=== PATIENT | female | born 1990 | race Caucasian/White ===

== ENCOUNTER → 2016-02-13 | Outpatient (CLI) | payer OTHER ==
[2016-02-14 14:13] LABS: Gliadin AB IgA, Deaminated 5 UNITS (<20); Gliadin AB IgG, Deaminated 3 UNITS (<20)
== END | disposition home or self-care (01) ==
LOC: LABWHC1 11:47
PROVIDERS: ATTEND Family Medicine
DX: R63.4 Abnormal weight loss (principal)
CPT/HCPCS: 36415; 83516; 86677

== ENCOUNTER 2018-07-09 10:46 | Inpatient (IN) | payer OTHER ==
[2018-07-09 13:40] VITALS: BMI 20.9
[2018-07-09 15:14] LABS: Basophils % (A) 1 %; Eosinophils # (A) 0.4 k/uL (0-0.7); Eosinophils % (A) 5 %; HCT 37.6 % (34.0-46.0); HGB 12.2 gm/dL (11.4-16.0); Lymphocytes # (A) 1.7 k/uL (1.0-4.8); Lymphocytes % (A) 20 %; MCH 28.4 pg (25.0-35.0); MCHC 32.5 g/dL (31.0-37.0); MCV 87.4 fL (80.0-100.0); Mean Platelet Volume 6.9; Monocytes # (A) 0.4 k/uL (0-1.0); Monocytes % (A) 4 %; Neutrophils # (A) 5.9 k/uL (1.3-7.7); Neutrophils % (A) 69 %; Platelet Count 294 k/uL (150-450); RBC 4.31 m/uL (3.80-5.40); RDW 13.4 % (11.5-15.5); WBC 8.5 k/uL (3.8-10.6)
[2018-07-09 15:20] LABS: ALT 18 U/L (9-52); AST 26 U/L (14-36); Alkaline Phosphatase 57 U/L (38-126); Anion Gap 5 mmol/L; Blood Urea Nitrogen 8 mg/dL (7-17); Calcium 9.2 mg/dL (8.4-10.2); Carbon Dioxide 27 mmol/L (22-30); Chloride 108 mmol/L (98-107); Glucose 80 mg/dL (74-99); Potassium 4.5 mmol/L (3.5-5.1); Sodium 140 mmol/L (137-145); Total Bilirubin 1.1 mg/dL (0.2-1.3); Total Protein 6.6 g/dL (6.3-8.2)
[2018-07-09] MEDS: ONDANSETRON 4 MG/2 ML VIAL IVP PRN ×2 (15:34→21:54)
[2018-07-09] MEDS: ACETAMINOPHEN IV (For NPO) 1,000 MG in EMPTY BAG 1 BAG IVPB SCH ×2 (15:47→21:54)
[2018-07-09] MEDS: HYDROmorphone 0.5 MG/0.5 ML SYRINGE IVP PRN ×3 (15:49→23:32)
[2018-07-09] MEDS: CHOLECALCIFEROL 1,000 UNIT TAB PO SCH (15:51)
[2018-07-09] MEDS: FERROUS SULFATE 325 MG TAB PO SCH (15:52)
[2018-07-09] MEDS: PANTOPRAZOLE 40 MG TABLET PO SCH (15:52)
[2018-07-09] MEDS: SODIUM CHLORIDE 0.9% 1,000 ML IV SCH (15:53)
[2018-07-09 17:34] LABS: Glucose,Whole Blood 90 mg/dL (75-99)
[2018-07-09] MEDS: methylPREDNISolone SOD SUCCI 125 MG/2 ML VIAL IV SCH ×2 (17:41→23:25)
[2018-07-09] MEDS: INSULIN ASPART (NovoLOG) 100 UNIT/ML VIAL SQ SCH ×2 (17:43→21:59)
[2018-07-09] MEDS: clonazePAM 0.5 MG TAB PO SCH (19:53)
[2018-07-09] MEDS: ARIPiprazole 2 MG TAB PO SCH (19:53)
[2018-07-09] MEDS: busPIRone HCl 5 MG TAB PO SCH (19:53)
[2018-07-09] MEDS: [UNRECOGNIZED DRUG - OTHER] PO SCH (20:02)
[2018-07-09 21:10] LABS: Glucose,Whole Blood 94 mg/dL (75-99)
[2018-07-10] MEDS: SODIUM CHLORIDE 0.9% 1,000 ML IV SCH ×3 (00:47→20:09)
[2018-07-10] MEDS: ACETAMINOPHEN IV (For NPO) 1,000 MG in EMPTY BAG 1 BAG IVPB SCH ×2 (04:48→09:51)
[2018-07-10] MEDS: ONDANSETRON 4 MG/2 ML VIAL IVP PRN ×2 (04:48→23:42)
[2018-07-10] MEDS: HYDROmorphone 0.5 MG/0.5 ML SYRINGE IVP PRN ×5 (04:48→23:42)
[2018-07-10] MEDS: LEVOTHYROXINE 50 MCG TAB PO SCH (05:49)
[2018-07-10 06:57] LABS: Glucose,Whole Blood 101 mg/dL (75-99)
[2018-07-10] MEDS: INSULIN ASPART (NovoLOG) 100 UNIT/ML VIAL SQ SCH ×4 (07:12→21:43)
[2018-07-10 08:31] LABS: Basophils % (A) 0 %; Eosinophils # (A) 0.1 k/uL (0-0.7); Eosinophils % (A) 1 %; HCT 37.6 % (34.0-46.0); HGB 12.1 gm/dL (11.4-16.0); Lymphocytes # (A) 0.6 k/uL (1.0-4.8); Lymphocytes % (A) 9 %; MCH 28.4 pg (25.0-35.0); MCHC 32.2 g/dL (31.0-37.0); MCV 88.2 fL (80.0-100.0); Mean Platelet Volume 7.3; Monocytes # (A) 0.1 k/uL (0-1.0); Monocytes % (A) 1 %; Neutrophils # (A) 6.4 k/uL (1.3-7.7); Neutrophils % (A) 89 %; Platelet Count 283 k/uL (150-450); RBC 4.27 m/uL (3.80-5.40); RDW 12.8 % (11.5-15.5); WBC 7.2 k/uL (3.8-10.6)
[2018-07-10] MEDS: clonazePAM 0.5 MG TAB PO SCH ×2 (08:33→20:10)
[2018-07-10] MEDS: FERROUS SULFATE 325 MG TAB PO SCH (08:33)
[2018-07-10] MEDS: PANTOPRAZOLE 40 MG TABLET PO SCH (08:34)
[2018-07-10] MEDS: methylPREDNISolone SOD SUCCI 125 MG/2 ML VIAL IV SCH ×3 (08:34→23:42)
[2018-07-10] MEDS: CHOLECALCIFEROL 1,000 UNIT TAB PO SCH (08:34)
[2018-07-10] MEDS: busPIRone HCl 5 MG TAB PO SCH ×2 (08:36→20:11)
[2018-07-10] MEDS: amLODIPine 2.5 MG TAB PO SCH (08:36)
[2018-07-10 08:38] LABS: Anion Gap 7 mmol/L; Blood Urea Nitrogen 10 mg/dL (7-17); Calcium 9.2 mg/dL (8.4-10.2); Carbon Dioxide 22 mmol/L (22-30); Chloride 108 mmol/L (98-107); Glucose 94 mg/dL (74-99); Potassium 4.9 mmol/L (3.5-5.1); Sodium 137 mmol/L (137-145)
[2018-07-10] MEDS: [UNRECOGNIZED DRUG - OTHER] PO SCH ×2 (08:38→20:15)
[2018-07-10 11:10] LABS: Glucose,Whole Blood 87 mg/dL (75-99)
--- NOTE | 2018-07-10 16:21 | HP ---
HISTORY AND PHYSICAL We are covering for Dr. Satish Tompkins. DATE OF SERVICE: 07/10/2018 HISTORY OF PRESENT ILLNESS: The patient is a 28-year-old female with a history of Crohn's disease. She states that she has been out of her Humira for approximately 8 weeks. Subsequently patient started to have an acute exacerbation of her Crohn's with symptoms of diarrhea, throwing up, dizziness and lightheadedness. The patient was seen at [facility] on Friday, 2 days ago, at which time they wanted to admit her, but the patient could not stay because there was nobody to take care of her son. Since then patient was sent home and came up to [facility], as she is known to Dr. Tompkins, and was directly admitted. Patient came in yesterday afternoon and states that she has had no vomiting since she first arrived here at that time and has remained n.p.o. PAST MEDICAL HISTORY: Past medical history is significant for: 1. Exercise-induced asthma. 2. GERD. 3. Thyroid disease. 4. Heart murmur. 5. Hypoglycemia. 6. Back pain. 7. Endometriosis. 8. Anxiety. 9. Depression. 10.IBS. 11.Hypertension. 12.Crohn's. 13.Patient also has been treated for C difficile colitis twice. PAST SURGICAL HISTORY: Past surgical history is significant for hernia repair and Juan Antonio fundoplication. ALLERGIES: ALLERGIES INCLUDE: 1. AMOXICILLIN. 2. CODEINE. 3. DOXYCYCLINE. 4. EGGS. 5. NSAIDS. MEDICATIONS: Medications patient takes at home include: 1. Klonopin 0.5 mg p.o. b.i.d. 2. Buspirone 15 mg p.o. b.i.d. 3. Norvasc 2.5 mg p.o. daily. 4. Protonix 20 mg p.o. b.i.d. 5. Synthroid 50 mcg p.o. daily. 6. Feosol 325 mg p.o. daily. 7. Orilissa 200 mg p.o. b.i.d. 8. Vitamin D3 1000 units p.o. daily. 9. Abilify 2 mg p.o. at bedtime. 10.Patient states she also takes Imuran 50 mg p.o. b.i.d. FAMILY HISTORY: Father has sarcoidosis and skin cancer; mother sinus tachycardia and is bipolar. SOCIAL HISTORY: The patient is a smoker, smoking 1-2 cigarettes a day. Does occasionally smoke marijuana. She is trying to quit smoking. Denies any alcohol intake. REVIEW OF SYSTEMS: GENERAL: Negative for any fever or chills. HEENT: Positive for headaches and dizziness. Patient does describe that the dizziness and lightheadedness is prior to her having this exacerbation of Crohn's, which is concerning to her, as her mother does have a history of SVT. Patient denies any sore throat or difficulty swallowing. Denies any rhinitis or seasonal allergies. RESPIRATORY: Negative for shortness of breath or cough. CARDIOVASCULAR: Negative for chest pain. GI: Positive for abdominal pain that radiates from the front to the back. Patient does complain of liquid diarrhea, which is starting to form up a little better now. Denies any constipation. Does have history of IBS and Crohn's. : Negative for any dysuria or hematuria. ENDOCRINE: Positive for hypoglycemia and hyperthyroidism. MUSCULOSKELETAL: Positive for inflammatory arthritis, which was a recent diagnosis by an associate who works with Dr. Shipman at the rheumatology clinic. PSYCHIATRIC: Positive for anxiety and depression. PHYSICAL EXAMINATION: VITAL SIGNS: Temperature 97.6, heart rate 75, respiratory rate 18, blood pressure is 108/70. Oxygen saturation is 98% on room air. HEENT: Head is normocephalic, atraumatic. Pupils equal, round, reactive to light. Ears and nose: no discharge is noted. Mouth with moist mucous membranes. No pharyngeal erythema. NECK: Supple. Trachea is midline. No lymphadenopathy. HEART: S1, S2 are heard. Actually sound tachycardic at this time. LUNGS: Essentially clear. No rales or wheezes. ABDOMEN: Soft. Bowel sounds are positive. Mild tenderness to palpation. EXTREMITIES: No edema. NEUROLOGIC: Patient is alert and oriented. LABS: White count is 7.2, hemoglobin 12.1, hematocrit 37.6 with 283,000 platelets. Sodium is 137, potassium 4.9, chloride 108. CO2 is 22. Anion gap is 7. BUN is 10, creatinine 0.62, glucose 94, calcium 9.2. No imaging to review. ASSESSMENT: 1. Acute exacerbation of Crohn's. 2. Dizziness and lightheadedness. 3. History of hypoglycemia. 4. Anxiety. 5. Depression. PLAN: GI has been consulted. Will start patient on clear liquids at this time. Add telemetry. Check an echocardiogram. Continue pain medications, which have been ordered. Add GI and DVT prophylaxis. Will hold heparin at this time and encourage frequent ambulation. Reorder home medications. Nicotine patch 14 mg q.24 hours and also will add Imuran [address] Tompkins will follow with the patient starting tomorrow. MICHAEL / HENOKN: [id number] / MTDD
[2018-07-10 17:22] LABS: Glucose,Whole Blood 116 mg/dL (75-99)
[2018-07-10] MEDS ORDERED: NICOTINE 14MG/24HR PATCH TRANSDERM ONE (17:40)
[2018-07-10] MEDS: azaTHIOprine 50 MG TAB PO SCH (20:10)
[2018-07-10] MEDS: ARIPiprazole 2 MG TAB PO SCH (20:11)
[2018-07-10 20:38] LABS: Glucose,Whole Blood 159 mg/dL (75-99)
--- NOTE | 2018-07-10 22:26 | P.CONS ---
History of Present Illness - Reason for Consult Consult date: 07/10/18 Possible colitis Requesting physician: Satish Tompkins - Chief Complaint Abdominal pain, diarrhea, vomiting - History of Present Illness 28-year-old female with medical history significant for irritable bowel syndrome, Crohn's disease, hypothyroidism, asthma, inflammatory arthritis, endometriosis, depression and excised E and hypertension who presented to the hospital with a constellation of symptoms including abdominal pain, diarrhea and vomiting. The patient reports that her symptoms are consistent with previous episodes of exacerbations of her Crohn's disease. Currently she has been off of Humira therapy for 8 weeks and feels that this is resulted in her symptoms. At baseline the patient is on Humira and Imuran therapy. She states that Humira was started in 03/2017 and that recently she had her levels checked and plan was to increase dosing to weekly due to low levels of Humira. Initial diagnosis was in 2016 and the patient believes her disease involves only the small bowel. She denies any complications such as fistula formation, perianal disease or abscess, and has never required steroid therapy. [facility] as she wanted to leave to take care of her child. She states that testing for Clostridium difficile at that facility was negative. Laboratory evaluation on presentation was significant for a WBC 7.2, hemoglobin 12.1, platelet count 283,000, total bilirubin 1.1, alkaline phosphata se 57, AST 26 and ALT 18. Review of Systems REVIEW OF SYSTEMS: CONSTITUTIONAL: Denies any fevers, chills, weight change or fatigue. CARDIOVASCULAR: Denies any chest pain, palpitations but she does report a history of hypertension at baseline. RESPIRATORY: Denies any shortness of breath, hemoptysis or cough. GENITOURINARY: No dysuria or hematuria. MUSCULOSKELETAL: No weakness reported. SKIN: Denies any new rashes or lesions, jaundice or pallor. PSYCHIATRIC: Denies any depression or anxiety. NEUROLOGY: Denies headache, denies any new focal deficits. EARS/NOSE/THROAT: No recent hearing change, congestion, nasal discharge or sore throat. EYES: No pain in eyes, discharge or change in vision. GASTROINTESTINAL: As per HPI. Past Medical History Past Medical History: Asthma, GERD/Reflux, Thyroid Disorder Additional Past Medical History / Comment(s): Hypothyroid, hypoglycemia, duodenitis, cardiac murmur, migraines, inflammatory arthritis in R lower back and hands, endometriosis. History of Any Multi-Drug Resistant Organisms: None Reported Past Surgical History: Hernia Repair Additional Past Surgical History / Comment(s): Juan Antonio fundoplication, 2016 EGD and colonoscopy Past Anesthesia/Blood Transfusion Reactions: Family Hisory of Malignant Hyperthermia Additional Past Anesthesia/Blood Transfusion Reaction / Comm: Pts son has ulysses scott hyperthermia-pt. was tested & she does not have or no one on her side of family that she knows of-came from father's side per testing Smoking Status: Light tobacco smoker - Past Family History Father Family Medical History: Cancer Additional Family Medical History / Comment(s): Father has basal cell skin cancer and sarcoidosis. Mother Additional Family Medical History / Comment(s): Mother has sinus tachycardia, bipolar, borderline personality disorder and anxiety. Medications and Allergies Home Medications Medication Instructions Recorded Confirmed Type Levothyroxine Sodium [Synthroid] 50 mcg PO DAILY 10/20/15 07/09/18 History clonazePAM [KlonoPIN] 0.5 mg PO BID 10/20/15 07/09/18 History ARIPiprazole [Abilify] 2 mg PO HS 07/09/18 07/09/18 History Cholecalciferol [Vitamin D3 (25 1,000 unit PO DAILY 07/09/18 07/09/18 History Mcg = 1000 Iu)] Elagolix Sodium [Orilissa] 200 mg PO BID 07/09/18 07/09/18 History Ferrous Sulfate [Feosol] 325 mg PO DAILY 07/09/18 07/09/18 History Pantoprazole Sodium [Protonix] 20 mg PO BID 07/09/18 07/09/18 History amLODIPine [Norvasc] 2.5 mg PO DAILY 07/09/18 07/09/18 History busPIRone HCL 15 mg PO BID 07/09/18 07/09/18 History Allergies Allergy/AdvReac Type Severity Reaction Status Date / Time amoxicillin Allergy Rash/Hives Verified 07/09/18 13:38 codeine Allergy Rash/Hives Verified 07/09/18 13:38 doxycycline Allergy Rash/Hives Verified 07/09/18 13:38 Egg Derived Allergy Rash/Hives Verified 07/09/18 13:38 NSAIDS (Non-Steroidal Allergy Rash/Hives Verified 07/09/18 13:38 Anti-Inflamma Physical Exam Vitals: Vital Signs Temp Pulse Resp BP Pulse Ox 07/10/18 15:18 18 07/10/18 11:43 97.6 F 18 108/70 98 07/10/18 08:00 75 18 07/10/18 05:00 97.0 F L 75 18 101/59 98 07/09/18 21:04 97.6 F 83 18 117/67 96 Intake and Output 07/10/18 07/10/18 07/10/18 06:59 14:59 22:59 Other: Voiding Method Toilet Toilet Toilet # Voids 3 4 # Bowel Movements 2 Weight 57.153 kg On physical examination, patient appears comfortable in no apparent distress. HEAD: Normocephalic, atraumatic. EYES: No scleral icterus. No conjunctival injection. MOUTH: No lesions, tongue midline. NECK: Trachea midline, no gross abnormalities. CHEST: Clear to auscultation with no wheezing or rhonchi appreciated. HEART: Regular rate and rhythm. ABDOMEN: Soft, tender to palpation worse in the right abdomen. Bowel sounds are positive. No organomegaly. No guarding or rigidity. EXTREMITIES: No pedal edema. SKIN: No rashes, no jaundice. NEUROLOGIC: Alert and oriented x3. No focal deficits. Results CBC & Chem 7: 07/10/18 06:52 07/10/18 06:52 Labs: Abnormal Lab Results - Last 24 Hours (Table) 07/10/18 07/10/18 07/10/18 Range/Units 06:52 06:52 06:55 Lymphocytes # 0.6 L (1.0-4.8) k/uL Chloride 108 H (98-107) mmol/L POC Glucose (mg/dL) 101 H (75-99) mg/dL Assessment and Plan (1) Crohns disease Narrative/Plan: 28-year-old female with a history of Crohn's disease since 02/2016, who has been maintained on treatment with Humira and Imuran who presents with complaints of vomiting, diarrhea and abdominal pain and suspicion for a flare of her IBD. She reports that she has been off of her Humira for approximately 8 weeks and associates this with her current symptoms. Recent emergency department visit at [facility] during which the patient says she was tested for Clostridium difficile and found to be negative. Current Visit: Yes Status: Acute Code(s): K50.90 - CROHN'S DISEASE, UNSPECIFIED, WITHOUT COMPLICATIONS SNOMED Code(s): 10459639 (2) Abdominal pain Current Visit: Yes Status: Acute Code(s): R10.9 - UNSPECIFIED ABDOMINAL PAIN SNOMED Code(s): 08906585 (3) Diarrhea Current Visit: Yes Status: Acute Code(s): R19.7 - DIARRHEA, UNSPECIFIED SNOMED Code(s): 82359905 Plan: Supportive care Liquid diet, advance as tolerated to low residual Continue Imuran ESR, CRP, and fecal calprotectin ordered Continue Solu-Medrol IV therapy EIA for Clostridium difficile has been ordered and is pending Continue to monitor CBC, BMP and clinically Consider imaging if patient's symptoms do not improve Allowing us to participate in the care of the patient we will continue to follow
[2018-07-11] MEDS: ONDANSETRON 4 MG/2 ML VIAL IVP PRN (04:30)
[2018-07-11] MEDS: HYDROmorphone 0.5 MG/0.5 ML SYRINGE IVP PRN ×3 (04:31→12:30)
[2018-07-11] MEDS: LEVOTHYROXINE 50 MCG TAB PO SCH (04:34)
[2018-07-11] MEDS: SODIUM CHLORIDE 0.9% 1,000 ML IV SCH ×2 (06:09→16:15)
[2018-07-11 06:53] LABS: Glucose,Whole Blood 125 mg/dL (75-99)
[2018-07-11] MEDS: methylPREDNISolone SOD SUCCI 125 MG/2 ML VIAL IV SCH (07:39)
[2018-07-11] MEDS: busPIRone HCl 5 MG TAB PO SCH (07:40)
[2018-07-11] MEDS: clonazePAM 0.5 MG TAB PO SCH (07:40)
[2018-07-11] MEDS: FERROUS SULFATE 325 MG TAB PO SCH (07:40)
[2018-07-11] MEDS: azaTHIOprine 50 MG TAB PO SCH (07:40)
[2018-07-11] MEDS: PANTOPRAZOLE 40 MG TABLET PO SCH (07:40)
[2018-07-11] MEDS: INSULIN ASPART (NovoLOG) 100 UNIT/ML VIAL SQ SCH ×2 (07:41→11:58)
[2018-07-11] MEDS: amLODIPine 2.5 MG TAB PO SCH (07:41)
[2018-07-11] MEDS: CHOLECALCIFEROL 1,000 UNIT TAB PO SCH (07:41)
[2018-07-11] MEDS: [UNRECOGNIZED DRUG - OTHER] PO SCH (07:44)
[2018-07-11 07:59] LABS: Basophils % (A) 0 %; Eosinophils # (A) 0.1 k/uL (0-0.7); Eosinophils % (A) 1 %; HCT 37.7 % (34.0-46.0); HGB 12.1 gm/dL (11.4-16.0); Lymphocytes # (A) 0.7 k/uL (1.0-4.8); Lymphocytes % (A) 6 %; MCH 28.2 pg (25.0-35.0); MCHC 32.1 g/dL (31.0-37.0); MCV 87.8 fL (80.0-100.0); Monocytes # (A) 0.3 k/uL (0-1.0); Monocytes % (A) 3 %; Neutrophils # (A) 10.2 k/uL (1.3-7.7); Neutrophils % (A) 90 %; Platelet Count 347 k/uL (150-450); RBC 4.29 m/uL (3.80-5.40); RDW 13.4 % (11.5-15.5); WBC 11.4 k/uL (3.8-10.6)
[2018-07-11 08:12] LABS: Anion Gap 7 mmol/L; Blood Urea Nitrogen 9 mg/dL (7-17); C Reactive Protein <5.0 mg/L (<10.0); Calcium 9.8 mg/dL (8.4-10.2); Carbon Dioxide 25 mmol/L (22-30); Chloride 107 mmol/L (98-107); Glucose 130 mg/dL (74-99); Potassium 4.4 mmol/L (3.5-5.1); Sodium 139 mmol/L (137-145)
[2018-07-11] MEDS ORDERED: NICOTINE 14MG/24HR PATCH TRANSDERM SCH (09:00)
[2018-07-11 11:20] LABS: Glucose,Whole Blood 161 mg/dL (75-99)
[2018-07-11 12:35] VITALS: BP 114/77; PULSE 83; RESP 17; TEMP 98
[2018-07-11 16:13] LABS: Erythrocyte Sedimentation Rate 14 mm/hr (0-20)
[2018-07-11] MEDS ORDERED: predniSONE 20 MG TAB PO SCH (16:15)
--- NOTE | 2018-07-11 17:04 | CONS ---
CONSULTATION DATE OF DICTATION: July 11, 2018 Patient is a 28-year-old pleasant white female with history of Crohn's disease, Crohn's ileitis, follows with Dr. Galvin in the [facility] who was admitted to hospital with nausea, vomiting, diarrhea with severe abdominal pain for the last 2 days duration. She was started on IV Solu-Medrol 60 mg q.8 hours yesterday for exacerbation of Crohn's disease. The patient was maintained on Humira since March of 2017 and Imuran 100 mg daily since January of 2017. She stopped taking the Humira because of some insurance issues about 8 weeks ago. Today she is feeling better. Abdominal pain has resolved. No further episodes of nausea, vomiting. On a clear liquid diet, tolerating well. She had only 2 bowel movements. PHYSICAL EXAMINATION: Appears comfortable. No apparent distress. Vital signs stable. Blood pressure is 132/86, pulse rate 80 per minute and afebrile. HEENT examination unremarkable. Conjunctivae pink. Sclerae anicteric. Oral cavity no lesions. Neck no JVD or lymph node enlargement. Chest was clear to auscultation. HEART: Regular rate and rhythm. ABDOMEN: Soft. Bowel sounds are positive. No organomegaly. Extremities: No pedal edema. Skin no rashes. NEUROLOGIC: Alert and oriented x3. No focal deficits. LABS: WBC 11.4, hemoglobin 12.1, platelets are normal. Basic metabolic panel is within normal limits. CRP is less than 5. IMPRESSION: Acute exacerbation of Crohn's ileitis on IV Solu-Medrol. Symptoms are significantly improved. The patient who has been maintained on oral Imuran 100 mg daily and Humira once every 2 weeks since April of 2017. She did not take Humira for the last 8 weeks because of some insurance reasons. RECOMMENDATIONS: 1. Start on oral prednisone 40 mg daily. 2. She was advised to restart Imuran as well as Humira as soon as possible. 3. She can advance diet as tolerated. 4. She can be discharged home. 5. She was advised to taper the prednisone by 5 mg every week. 6. Follow up with her transporter radiology in 1-2 weeks. Thank you for this consultation. MMODL / IJN: [id number] /
--- NOTE | 2018-07-11 18:21 | DS ---
DISCHARGE SUMMARY DISCHARGE MEDICATIONS: 1. Imuran 50 b.i.d. 2. Nicotine patch 14 mg daily. 3. Synthroid 50 mcg daily. 4. Klonopin 0.5 b.i.d. 5. Vitamin D 1000 units daily. 6. Ferrous sulfate 325 daily. 7. Orilissa 200 b.i.d. 8. Norvasc 2.5 mg daily. 9. Protonix 20 mg b.i.d. 10.Abilify 2 q.h.s. 11.Buspirone 15 b.i.d. CONDITION: Stable. PROGNOSIS: Guarded. Ambulate as tolerated. DIET: Regular. HOSPITAL COURSE OF EVENTS: This is a white female came in with acute ulcerative colitis flare, failed outpatient treatment, started on IV Solu-Medrol, and Orilissa. The patient was supposed to get release of Orilissa, filled next Friday, 3-4 days from now. She will continue on current steroids including Medrol Dosepak to go home with. She will follow up in next 24-48 hours for possible discharge and see in the office. Abdominal pain, diarrhea and nausea and vomiting are resolved on discharge. MMODL / IJN: [id number] /
--- NOTE | 2018-07-12 13:56 | ECHOF ---
Referral Reason:dizziness, lightheadedness MEASUREMENTS -------- HEIGHT: 165.1 cm WEIGHT: 57.2 kg BP: 100/59 IVSd: 0.9 cm (0.6 - 1.1) LVIDd: 4.5 cm (3.9 - 5.3) LVPWd: 0.8 cm (0.6 - 1.1) EDV(Teich): 91 ml IVSs: 1.2 cm LVIDs: 2.8 cm LVPWs: 1.4 cm %IVS Thck: 45 % ESV(Teich): 29 ml EF(Teich): 68 % %FS: 38 % SV(Teich): 62 ml LA Diam: 2.6 cm (2.7 - 3.8) RVIDd: 2.8 cm (< 3.3) LALs A4C: 4.7 cm LAAs A4C: 14.2 cm LAESV A-L A4C: 37 ml LAESV MOD A4C: 34 ml LALs A2C: 5.2 cm LAAs A2C: 15.0 cm LAESV A-L A2C: 37 ml LAESV MOD A2C: 33 ml LAESV(A-L): 39 ml LAESV Index (A-L): 23.63 ml/m Ao Diam: 2.5 cm (2.0 - 3.7) AV Cusp: 1.9 cm (1.5 - 2.6) EPSS: 0.2 cm MV E Keith: 1.33 m/s MV DecT: 160 ms MV Dec Erath: 8.3 m/s MV A Keith: 0.86 m/s MV E/A Ratio: 1.55 MV PHT: 46 ms AV Vmax: 1.42 m/s AV maxP.10 mmHg TR Vmax: 1.89 m/s TR maxP.26 mmHg RAP: 5.00 mmHg RVSP: 19.26 mmHg MV EF SLOPE: 121.83 mm/s (70 - 150) MV EXCURSION: 16.23 mm (> 18.000) FINDINGS -------- Sinus rhythm. This was a technically good study. The left ventricular size is normal. Left ventricular wall thickness is normal. Overall left vent ricular systolic function is normal with, an EF between 60 - 65 %. The right ventricle is normal in size. Normal LA size by volume 22+/-6 ml/m2. The right atrium is normal in size. Interatrial and interventricular septum intact. The aortic valve is trileaflet and appears structurally normal. There is trace to mild mitral regurgitation. Mild tricuspid regurgitation present. Right ventricular systolic pressure is normal at < 35 mmHg. The pulmonic valve was not well visualized. The aortic root size is normal. Normal inferior vena cava with normal inspiratory collapse consistent with estimated right atrial pre ssure of 5 mmHg. There is no pericardial effusion. CONCLUSIONS -------- 1. Sinus rhythm. 2. This was a technically good study. 3. The left ventricular size is normal. 4. Left ventricular wall thickness is normal. 5. Overall left ventricular systolic function is normal with, an EF between 60 - 65 %. 6. The right ventricle is normal in size. 7. Normal LA size by volume 22+/-6 ml/m2. 8. The right atrium is normal in size. 9. Interatrial and interventricular septum intact. 10. The aortic valve is trileaflet and appears structurally normal. 11. There is trace to mild mitral regurgitation. 12. Mild tricuspid regurgitation present. 13. Right ventricular systolic pressure is normal at < 35 mmHg. 14. The pulmonic valve was not well visualized. 15. The aortic root size is normal. 16. Normal inferior vena cava with normal inspiratory collapse consistent with estimated right atrial pressure of 5 mmHg. 17. There is no pericardial effusion. MANAGER MATERIALS MANAGEMENT: Charlotte Perales RDCS
== END 2018-07-11 16:45 | disposition home or self-care (01) | DRG 387 ==
LOC: 3NMEDONC 11:25
PROVIDERS: ADMIT Family Medicine; ATTEND Family Medicine
DX: K50.00 Crohn's disease of small intestine without complications (principal); E03.9 Hypothyroidism, unspecified; F17.210 Nicotine dependence, cigarettes, uncomplicated; F32.9 Major depressive disorder, single episode, unspecified; F41.9 Anxiety disorder, unspecified; I10 Essential (primary) hypertension; J45.909 Unspecified asthma, uncomplicated; K21.9 Gastro-esophageal reflux disease without esophagitis; Z79.890 Hormone replacement therapy; Z79.899 Other long term (current) drug therapy; Z80.8 Family history of malignant neoplasm of other organs or systems; Z81.8 Family history of other mental and behavioral disorders; Z88.5 Allergy status to narcotic agent; Z88.0 Allergy status to penicillin; Z88.6 Allergy status to analgesic agent; Z88.1 Allergy status to other antibiotic agents; Z91.012 Allergy to eggs
CPT/HCPCS: 80048; 80053; 85025; 85652; 86140; 93306

== ENCOUNTER 2019-04-11 18:20 | Inpatient (IN) | payer MEDICARE, OTHER ==
[2019-04-11] MEDS ORDERED: SODIUM CHLORIDE 0.9% 1,000 ML IV STA (18:40)
[2019-04-11] MEDS ORDERED: methylPREDNISolone SOD SUCCI 125 MG/2 ML VIAL IV STA (18:42)
[2019-04-11] MEDS ORDERED: ONDANSETRON 4 MG/2 ML VIAL IVP STA (18:42)
[2019-04-11] MEDS ORDERED: HYDROmorphone 1 MG/ML 1 ML SYRINGE IVP STA (18:42)
--- NOTE | 2019-04-11 18:51 | ED ---
General Adult HPI - General Chief complaint: GI Bleed Stated complaint: chron's/abd pain/blood in stool Time Seen by Provider: 04/11/19 18:35 Source: patient, RN notes reviewed, old records reviewed Mode of arrival: ambulatory Limitations: no limitations - History of Present Illness Initial comments: 39-year-old female history of Crohn's disease presenting with 3 days of abdominal pain and rectal bleeding. Patient states she's had intermittent bright red blood over the past 3 days. She's had some mild nausea with no significant vomiting. Denies fever. She is currently on Stalera and follows with gastroenterology. She states her symptoms are consistent with previous Crohn's flare. She does have remote history of C. difficile infection. She denies fever or chills. - Related Data Home Medications Medication Instructions Recorded Confirmed Levothyroxine Sodium [Synthroid] 50 mcg PO DAILY 10/20/15 07/09/18 clonazePAM [KlonoPIN] 0.5 mg PO BID 10/20/15 07/09/18 ARIPiprazole [Abilify] 2 mg PO HS 07/09/18 07/09/18 Cholecalciferol [Vitamin D3 (25 1,000 unit PO DAILY 07/09/18 07/09/18 Mcg = 1000 Iu)] Elagolix Sodium [Orilissa] 200 mg PO BID 07/09/18 07/09/18 Ferrous Sulfate [Iron (65 MG 325 mg PO DAILY 07/09/18 07/09/18 Elemental)] Pantoprazole Sodium [Protonix] 20 mg PO BID 07/09/18 07/09/18 amLODIPine [Norvasc] 2.5 mg PO DAILY 07/09/18 07/09/18 busPIRone HCL 15 mg PO BID 07/09/18 07/09/18 Previous Rx's Medication Instructions Recorded Nicotine 14Mg/24Hr Patch [Habitrol] 1 patch TRANSDERM DAILY patch 07/11/18 azaTHIOprine [Imuran] 50 mg PO BID tab 07/11/18 Allergies Allergy/AdvReac Type Severity Reaction Status Date / Time adalimumab [From Humira] Allergy Rash/Hives Verified 04/11/19 18:32 amoxicillin Allergy Rash/Hives Verified 04/11/19 18:32 codeine Allergy Rash/Hives Verified 04/11/19 18:32 doxycycline Allergy Rash/Hives Verified 04/11/19 18:32 Egg Derived Allergy Rash/Hives Verified 04/11/19 18:32 infliximab [From Remicade] Allergy Rash/Hives Verified 04/11/19 18:32 NSAIDS (Non-Steroidal Allergy Rash/Hives Verified 04/11/19 18:32 Anti-Inflamma metronidazole [From Flagyl] AdvReac Vomiting Verified 04/11/19 18:32 Review of Systems ROS Statement: Those systems with pertinent positive or pertinent negative responses have been documented in the HPI. ROS Other: All systems not noted in ROS Statement are negative. Past Medical History Past Medical History: Asthma, GERD/Reflux, Hypertension, Thyroid Disorder Additional Past Medical History / Comment(s): Hypothyroid, hypoglycemia, duodenitis, cardiac murmur, migraines, inflammatory arthritis in R lower back and hands, endometriosis, chrons, IBS History of Any Multi-Drug Resistant Organisms: C-DIFF Date of last positivie culture/infection: 2017 MDRO Source:: stool Past Surgical History: Hernia Repair Additional Past Surgical History / Comment(s): Juan Antonio fundoplication, 2016 EGD and colonoscopy, removal of endometriosis and ovarian cysts Past Anesthesia/Blood Transfusion Reactions: Family Hisory of Malignant Hyper thermia Additional Past Anesthesia/Blood Transfusion Reaction / Comment(s): Pts son has malignant hyperthermia-pt. was tested & she does not have or no one on her side of family that she knows of-came from father's side per testing Past Psychological History: Anxiety, Depression Smoking Status: Current every day smoker Past Alcohol Use History: None Reported Past Drug Use History: Marijuana - Past Family History Father Family Medical History: Cancer Additional Family Medical History / Comment(s): Father has basal cell skin cancer and sarcoidosis. Mother Additional Family Medical History / Comment(s): Mother has sinus tachycardia, bipolar, borderline personality disorder and anxiety. General Exam Limitations: no limitations General appearance: alert, in no apparent distress Head exam: Present: atraumatic, normocephalic Eye exam: Present: normal appearance, PERRL ENT exam: Present: normal exam Neck exam: Present: normal inspection. Absent: tenderness, meningismus Respiratory exam: Present: normal lung sounds bilaterally. Absent: respiratory distress, wheezes Cardiovascular Exam: Present: normal rhythm, tachycardia GI/Abdominal exam: Present: soft, tenderness (Minimal right lower quadrant tenderness). Absent: distended, guarding, rebound Extremities exam: Present: normal inspection, normal capillary refill. Absent: pedal edema, calf tenderness Neurological exam: Present: alert, oriented X3, CN II-XII intact. Absent: motor sensory deficit Psychiatric exam: Present: normal affect, normal mood Skin exam: Present: warm, dry, intact. Absent: cyanosis, diaphoretic Course Vital Signs 04/11/19 18:28 Temperature 97.7 F Pulse Rate 121 H Respiratory 20 Rate Blood Pressure 146/110 O2 Sat by Pulse 100 Oximetry Medical Decision Making - Medical Decision Making 29-year-old female with Crohn's presenting with abdominal pain and rectal bleeding, presenting with similar symptoms to previous Crohn's exacerbation. Patient appears dehydrated, tachycardic on initial exam minimal abdominal tenderness. She has a normal CBC, no leukocytosis, stable hemoglobin. Electrolytes are within normal limits. She's given IV hydration, steroids, pain control. She is feeling somewhat better. I discussed case with the primary care physician and will admit for symptom control, IV steroids, reevaluation. Gastroenterology has been placed on consult. Stool studies are pending. - Lab Data Result diagrams: 04/11/19 19:16 04/11/19 19:16 Lab Results 04/11/19 04/11/19 04/11/19 Range/Units 19:16 19:16 19:16 WBC 6.2 (3.8-10.6) k/uL RBC 4.24 (3.80-5.40) m/uL Hgb 12.5 (11.4-16.0) gm/dL Hct 37.7 (34.0-46.0) % MCV 89.0 (80.0-100.0) fL MCH 29.6 (25.0-35.0) pg MCHC 33.2 (31.0-37.0) g/dL RDW 12.8 (11.5-15.5) % Plt Count 249 (150-450) k/uL Neutrophils % 50 % Lymphocytes % 36 % Monocytes % 5 % Eosinophils % 6 % Basophils % 1 % Neutrophils # 3.1 (1.3-7.7) k/uL Lymphocytes # 2.2 (1.0-4.8) k/uL Monocytes # 0.3 (0-1.0) k/uL Eosinophils # 0.4 (0-0.7) k/uL Basophils # 0.0 (0-0.2) k/uL PT 10.2 (9.0-12.0) sec INR 1.0 (<1.2) APTT 23.8 (22.0-30.0) sec Sodium 136 L (137-145) mmol/L Potassium 3.9 (3.5-5.1) mmol/L Chloride 105 (98-107) mmol/L Carbon Dioxide 25 (22-30) mmol/L Anion Gap 6 mmol/L BUN 11 (7-17) mg/dL Creatinine 0.68 (0.52-1.04) mg/dL Est GFR (CKD-EPI)AfAm >90 (>60 ml/min/1.73 sqM) Est GFR (CKD-EPI)NonAf >90 (>60 ml/min/1.73 sqM) Glucose 85 (74-99) mg/dL Plasma Lactic Acid Yong (0.7-2.0) mmol/L Calcium 9.5 (8.4-10.2) mg/dL Magnesium 2.0 (1.6-2.3) mg/dL Total Bilirubin 1.3 (0.2-1.3) mg/dL AST 19 (14-36) U/L ALT 10 (4-34) U/L Alkaline Phosphatase 51 (38-126) U/L Total Protein 6.7 (6.3-8.2) g/dL Albumin 4.1 (3.5-5.0) g/dL Lipase 86 (23-300) U/L Urine Color Urine Appearance (Clear) Urine pH (5.0-8.0) Ur Specific [place] (1.001-1.035) Urine Protein (Negative) Urine Glucose (UA) (Negative) Urine Ketones (Negative) Urine Blood (Negative) Urine Nitrite (Negative) Urine Bilirubin (Negative) Urine Urobilinogen (<2.0) mg/dL Ur Leukocyte Esterase (Negative) Urine HCG, Qual (Not Detectd) Blood Type Recheck Bld Type Recheck Status Spec Expiration Date 04/11/19 04/11/19 04/11/19 Range/Units 19:16 19:40 19:40 WBC (3.8-10.6) k/uL RBC (3.80-5.40) m/uL Hgb (11.4-16.0) gm/dL Hct (34.0-46.0) % MCV (80.0-100.0) fL MCH (25.0-35.0) pg MCHC (31.0-37.0) g/dL RDW (11.5-15.5) % Plt Count (150-450) k/uL Neutrophils % % Lymphocytes % % Monocytes % % Eosinophils % % Basophils % % Neutrophils # (1.3-7.7) k/uL Lymphocytes # (1.0-4.8) k/uL Monocytes # (0-1.0) k/uL Eosinophils # (0-0.7) k/uL Basophils # (0-0.2) k/uL PT (9.0-12.0) sec INR (<1.2) APTT (22.0-30.0) sec Sodium (137-145) mmol/L Potassium (3.5-5.1) mmol/L Chloride (98-107) mmol/L Carbon Dioxide (22-30) mmol/L Anion Gap mmol/L BUN (7-17) mg/dL Creatinine (0.52-1.04) mg/dL Est GFR (CKD-EPI)AfAm (>60 ml/min/1.73 sqM) Est GFR (CKD-EPI)NonAf (>60 ml/min/1.73 sqM) Glucose (74-99) mg/dL Plasma Lactic Acid Yong 0.8 (0.7-2.0) mmol/L Calcium (8.4-10.2) mg/dL Magnesium (1.6-2.3) mg/dL Total Bilirubin (0.2-1.3) mg/dL AST (14-36) U/L ALT (4-34) U/L Alkaline Phosphatase (38-126) U/L Total Protein (6.3-8.2) g/dL Albumin (3.5-5.0) g/dL Lipase (23-300) U/L Urine Color Yellow Urine Appearance Clear (Clear) Urine pH 5.5 (5.0-8.0) Ur Specific [place] 1.026 (1.001-1.035) Urine Protein Trace H (Negative) Urine Glucose (UA) Negative (Negative) Urine Ketones Negative (Negative) Urine Blood Negative (Negative) Urine Nitrite Negative (Negative) Urine Bilirubin Negative (Negative) Urine Urobilinogen <2.0 (<2.0) mg/dL Ur Leukocyte Esterase Negative (Negative) Urine HCG, Qual (Not Detectd) Blood Type Recheck No Previous Record Bld Type Recheck Status CABO Indicated Spec Expiration Date 04/14/2019 - 233904/11/19 Range/Units 19:40 WBC (3.8-10.6) k/uL RBC (3.80-5.40) m/uL Hgb (11.4-16.0) gm/dL Hct (34.0-46.0) % MCV (80.0-100.0) fL MCH (25.0-35.0) pg MCHC (31.0-37.0) g/dL RDW (11.5-15.5) % Plt Count (150-450) k/uL Neutrophils % % Lymphocytes % % Monocytes % % Eosinophils % % Basophils % % Neutrophils # (1.3-7.7) k/uL Lymphocytes # (1.0-4.8) k/uL Monocytes # (0-1.0) k/uL Eosinophils # (0-0.7) k/uL Basophils # (0-0.2) k/uL PT (9.0-12.0) sec INR (<1.2) APTT (22.0-30.0) sec Sodium (137-145) mmol/L Potassium (3.5-5.1) mmol/L Chloride (98-107) mmol/L Carbon Dioxide (22-30) mmol/L Anion Gap mmol/L BUN (7-17) mg/dL Creatinine (0.52-1.04) mg/dL Est GFR (CKD-EPI)AfAm (>60 ml/min/1.73 sqM) Est GFR (CKD-EPI)NonAf (>60 ml/min/1.73 sqM) Glucose (74-99) mg/dL Plasma Lactic Acid Yong (0.7-2.0) mmol/L Calcium (8.4-10.2) mg/dL Magnesium (1.6-2.3) mg/dL Total Bilirubin (0.2-1.3) mg/dL AST (14-36) U/L ALT (4-34) U/L Alkaline Phosphatase (38-126) U/L Total Protein (6.3-8.2) g/dL Albumin (3.5-5.0) g/dL Lipase (23-300) U/L Urine Color Urine Appearance (Clear) Urine pH (5.0-8.0) Ur Specific [place] (1.001-1.035) Urine Protein (Negative) Urine Glucose (UA) (Negative) Urine Ketones (Negative) Urine Blood (Negative) Urine Nitrite (Negative) Urine Bilirubin (Negative) Urine Urobilinogen (<2.0) mg/dL Ur Leukocyte Esterase (Negative) Urine HCG, Qual Not Detected (Not Detectd) Blood Type Recheck Bld Type Recheck Status Spec Expiration Date Disposition Clinical Impression: Crohn's colitis, Dehydration, Crohns disease Disposition: ADMITTED IP TO THIS [facility] Condition: Stable Is patient prescribed a controlled substance at d/c from ED?: No Referrals: Satish Tompkins MD [Primary Care Provider] - 1-2 days Decision to Admit Reason: Admit from EC Decision Date: 04/11/19 Decision Time: 20:35
[2019-04-11 19:41] LABS: Basophils % (A) 1 %; Eosinophils # (A) 0.4 k/uL (0-0.7); Eosinophils % (A) 6 %; HCT 37.7 % (34.0-46.0); HGB 12.5 gm/dL (11.4-16.0); Lymphocytes # (A) 2.2 k/uL (1.0-4.8); Lymphocytes % (A) 36 %; MCH 29.6 pg (25.0-35.0); MCHC 33.2 g/dL (31.0-37.0); Mean Platelet Volume 7.4; Monocytes # (A) 0.3 k/uL (0-1.0); Monocytes % (A) 5 %; Neutrophils # (A) 3.1 k/uL (1.3-7.7); Neutrophils % (A) 50 %; Platelet Count 249 k/uL (150-450); RBC 4.24 m/uL (3.80-5.40); RDW 12.8 % (11.5-15.5); WBC 6.2 k/uL (3.8-10.6)
[2019-04-11 19:54] LABS: African American GFR (CKD) >90 (>60 ml/min/1.73 sqM); Albumin 4.1 g/dL (3.5-5.0); Carbon Dioxide 25 mmol/L (22-30); Non-African American GFR(CKD) >90 (>60 ml/min/1.73 sqM); Total Protein 6.7 g/dL (6.3-8.2)
[2019-04-11 19:55] LABS: ALT 10 U/L (4-34); AST 19 U/L (14-36); Alkaline Phosphatase 51 U/L (38-126); Anion Gap 6 mmol/L; Blood Urea Nitrogen 11 mg/dL (7-17); Calcium 9.5 mg/dL (8.4-10.2); Chloride 105 mmol/L (98-107); Glucose 85 mg/dL (74-99); Potassium 3.9 mmol/L (3.5-5.1); Sodium 136 mmol/L (137-145); Total Bilirubin 1.3 mg/dL (0.2-1.3)
[2019-04-11 19:59] LABS: Appearance,Urine Clear (Clear); Bilirubin,Urine Negative (Negative); Blood,Urine Negative (Negative); Color,Urine Yellow; Glucose,Urine (UA) Negative (Negative); Ketones,Urine Negative (Negative); Leukocyte Esterase,Urine Negative (Negative); Nitrite,Urine Negative (Negative); PH, Urine 5.5 (5.0-8.0); Protein,Urine Trace (Negative); Specific Gravity,Urine 1.026 (1.001-1.035); Urobilinogen,Urine <2.0 mg/dL (<2.0)
[2019-04-11 20:19] LABS: Partial Thromboplastin Time 23.8 sec (22.0-30.0); Prothrombin Time 10.2 sec (9.0-12.0)
[2019-04-11] MEDS ORDERED: NALOXONE 0.4 MG/ML 1 ML VIAL IV PRN (20:32)
[2019-04-11] MEDS: SODIUM CHLORIDE 0.9% 1,000 ML IV SCH (23:12)
[2019-04-11] MEDS: HYDROmorphone 0.5 MG/0.5 ML SYRINGE IVP PRN (23:21)
[2019-04-11] MEDS: methylPREDNISolone SOD SUCCI 125 MG/2 ML VIAL IV SCH (23:22)
[2019-04-11] MEDS: ONDANSETRON 4 MG/2 ML VIAL IVP PRN (23:50)
[2019-04-12] MEDS: HYDROmorphone 0.5 MG/0.5 ML SYRINGE IVP PRN ×5 (05:08→21:52)
[2019-04-12] MEDS: SODIUM CHLORIDE 0.9% 1,000 ML IV SCH ×2 (09:04→15:58)
[2019-04-12] MEDS: methylPREDNISolone SOD SUCCI 125 MG/2 ML VIAL IV SCH ×2 (09:04→15:56)
[2019-04-12] MEDS: ONDANSETRON 4 MG/2 ML VIAL IVP PRN (09:07)
[2019-04-12 10:57] VITALS: BMI 17.6
[2019-04-12] MEDS: PANTOPRAZOLE 40 MG/10 ML VIAL IVP SCH ×2 (12:01→21:43)
[2019-04-12] MEDS: FERROUS SULFATE 325 MG TAB PO SCH (13:02)
[2019-04-12] MEDS: CHOLECALCIFEROL 1,000 UNIT TAB PO SCH (13:02)
[2019-04-12] MEDS: clonazePAM 0.5 MG TAB PO SCH ×2 (13:02→21:43)
[2019-04-12] MEDS: NICOTINE 7MG/24HR PATCH TRANSDERM SCH (13:02)
[2019-04-12] MEDS: INSULIN ASPART (NovoLOG) 100 UNIT/ML VIAL SQ SCH ×3 (13:12→21:43)
[2019-04-12] MEDS ORDERED: NON FORMULARY DRUG (Lansoprazole [Prevacid] 30 MG) PO SCH (13:30)
[2019-04-12] MEDS: ONDANSETRON 4 MG/2 ML VIAL IVP SCH (15:57)
--- NOTE | 2019-04-12 16:04 | HP ---
HISTORY AND PHYSICAL This patient is a 29-year-old white female with history of Crohn's disease. She was sent here by her GI physician for a Crohn's flare. She has some nausea. No significant vomiting. She denies fever. She is on Stelara. Gastroenterology. She did have C difficile infection. No fever or chills. She came in with severe bright red blood over the past 3 days per rectum. Waiting for GI consultation. Started on IV Solu- Medrol. HOME MEDICATIONS: 1. Synthroid 50 mcg daily. 2. Klonopin 0.5 b.i.d. 3. Abilify 2 mg daily. 4. Vitamin D. 5. Orilissa 200 b.i.d. 6. Ferrous sulfate 325 daily. 7. Protonix 20 mg b.i.d. 8. Norvasc 2.5 mg daily. 9. BuSpar 15 b.i.d. ALLERGIES: 1. AMOXICILLIN. 2. CODEINE. 3. DOXYCYCLINE. 4. REMICADE. 5. NSAIDS. 6. FLAGYL. REVIEW OF SYSTEMS: Fourteen-point review of systems negative except for mentioned above. PAST MEDICAL HISTORY: Asthma, GERD, hypertension, hypothyroidism, duodenitis, colitis, endometriosis, IBS, migraines, inflammatory arthritis. SURGERIES: Juan Antonio fundoplication, endometriosis, ovarian cyst, hernia repair. FAMILY HISTORY: Malignant hyperthermia, anxiety, depression. Father with cancer, basal cell skin cancer, sarcoidosis. Mother with sinus tachycardia, bipolar, borderline personality. SOCIAL HISTORY: Current everyday smoker. History of marijuana. PHYSICAL EXAMINATION: Vital signs reviewed. She is thin, cachectic. Lungs are clear. Cardiovascular: S1, S2. GI has increased bowel sounds x4. Diffuse tenderness. ASSESSMENT: 1. Acute Crohn's flare with abdominal pain, rectal bleeding. IV steroids have been started per GI recommendations. 2. Tachycardia, possibly due to some dehydration. Pain control, IV hydration and IV steroids will be needed. Please see further orders. Await gastroenterology recommendations. MMODL / IJN: [id number] /
[2019-04-12 17:34] LABS: Glucose,Whole Blood 173 mg/dL (75-99)
[2019-04-12 20:57] LABS: Glucose,Whole Blood 159 mg/dL (75-99)
[2019-04-12] MEDS: ARIPiprazole 2 MG TAB PO SCH (21:43)
[2019-04-12] MEDS: ONDANSETRON 4 MG TAB PO PRN (21:48)
[2019-04-13] MEDS: SODIUM CHLORIDE 0.9% 1,000 ML IV SCH ×3 (00:14→23:46)
[2019-04-13] MEDS: ONDANSETRON 4 MG/2 ML VIAL IVP SCH ×4 (00:15→23:46)
[2019-04-13] MEDS: methylPREDNISolone SOD SUCCI 125 MG/2 ML VIAL IV SCH ×2 (00:15→08:06)
[2019-04-13] MEDS: HYDROmorphone 0.5 MG/0.5 ML SYRINGE IVP PRN ×4 (04:42→21:56)
[2019-04-13] MEDS: PROCHLORPERAZINE 10 MG TAB PO PRN (04:42)
[2019-04-13] MEDS: LEVOTHYROXINE 50 MCG TAB PO SCH (04:42)
[2019-04-13 06:56] LABS: Glucose,Whole Blood 135 mg/dL (75-99)
[2019-04-13 07:52] LABS: Basophils % (A) 0 %; Eosinophils % (A) 0 %; HGB 11.6 gm/dL (11.4-16.0); Lymphocytes # (A) 0.6 k/uL (1.0-4.8); Lymphocytes % (A) 6 %; MCH 29.2 pg (25.0-35.0); MCHC 32.3 g/dL (31.0-37.0); MCV 90.5 fL (80.0-100.0); Mean Platelet Volume 7.9; Monocytes # (A) 0.2 k/uL (0-1.0); Monocytes % (A) 2 %; Neutrophils # (A) 8.8 k/uL (1.3-7.7); Neutrophils % (A) 91 %; Platelet Count 201 k/uL (150-450); RBC 3.98 m/uL (3.80-5.40); RDW 12.9 % (11.5-15.5); WBC 9.7 k/uL (3.8-10.6)
[2019-04-13] MEDS: INSULIN ASPART (NovoLOG) 100 UNIT/ML VIAL SQ SCH ×4 (08:05→20:54)
[2019-04-13 08:07] LABS: ALT 12 U/L (4-34); AST 18 U/L (14-36); African American GFR (CKD) >90 (>60 ml/min/1.73 sqM); Albumin 3.4 g/dL (3.5-5.0); Alkaline Phosphatase 41 U/L (38-126); Anion Gap 6 mmol/L; Blood Urea Nitrogen 8 mg/dL (7-17); Carbon Dioxide 21 mmol/L (22-30); Chloride 111 mmol/L (98-107); Glucose 124 mg/dL (74-99); Non-African American GFR(CKD) >90 (>60 ml/min/1.73 sqM); Sodium 138 mmol/L (137-145)
[2019-04-13] MEDS: clonazePAM 0.5 MG TAB PO SCH ×3 (08:07→21:54)
[2019-04-13] MEDS: PANTOPRAZOLE 40 MG/10 ML VIAL IVP SCH ×2 (08:07→21:54)
[2019-04-13] MEDS: NICOTINE 7MG/24HR PATCH TRANSDERM SCH (08:08)
--- NOTE | 2019-04-13 09:29 | P.CONS ---
History of Present Illness - Reason for Consult Consult date: 04/12/19 Crohn's disease Requesting physician: Satish Tompkins - Chief Complaint Diarrhea, blood per rectum, abdominal pain - History of Present Illness 29-year-old female with a past medical history significant for irritable bowel syndrome, Crohn's disease, hypothyroidism, asthma, inflammatory arthritis, endometriosis, depression and anxiety and hypertension who presented to the hospital with complaints of abdominal pain, diarrhea and blood per rectum. The patient has been on biologic therapy in the past and currently has been switched to Stelara for which she received her initial infusion in November 2018 and her subsequent maintenance dose in January 2019. She did require hospitalization one time in January at which time she felt her disease had become active. At that time she was treated with steroid therapy. She presents back to the hospital with complaints of abdominal cramping and pain with associated increased frequency of bowel movements and blood per rectum. The patient has recently undergone endoscopic evaluation with colonoscopy in 2017 and EGD in 02/2018 at which time she had dilation performed. She is scheduled to have EGD and colonoscopy within the next few months. She has also previously been on amino modulator therapy. Initial diagnosis of Crohn's disease was in 2016 and the patient believes involves only her small bowel. She denies any complications such as fistula formation, perianal disease or abscess but has required steroid therapy as previously mentioned. The patient follows up with gastroenterology at [facility]. On current presentation and laboratory evaluation significant for WBC 6.2, hemoglobin 12.5, platelet count 249,000, total bilirubin 1.3, alkaline phosphatase 51, AST 19 and ALT 18 with testing for Clostridium difficile negative. Review of Systems REVIEW OF SYSTEMS: CONSTITUTIONAL: Denies any fevers, chills, weight change or fatigue. CARDIOVASCULAR: Denies any chest pain, palpitations high or low blood pressures RESPIRATORY: Denies any shortness of breath, hemoptysis or cough. GENITOURINARY: No dysuria or hematuria. MUSCULOSKELETAL: No weakness reported. SKIN: Denies any new rashes or lesions, jaundice or pallor. PSYCHIATRIC: Denies any depression or anxiety. NEUROLOGY: Denies headache, denies any new focal deficits. EARS/NOSE/THROAT: No recent hearing change, congestion, nasal discharge or sore throat. EYES: No pain in eyes, discharge or change in vision. GASTROINTESTINAL: As per HPI. Past Medical History Past Medical History: Asthma, GERD/Reflux, Hypertension, Thyroid Disorder Additional Past Medical History / Comment(s): Hypothyroid, hypoglycemia, du odenitis, cardiac murmur, migraines, inflammatory arthritis in R lower back and hands, endometriosis, chrons, IBS, Anemia, History of Any Multi-Drug Resistant Organisms: C-DIFF Year Discovered:: 2018 MDRO Source:: stool Past Surgical History: Hernia Repair Additional Past Surgical History / Comment(s): Juan Antonio fundoplication, 2016 EGD and colonoscopy, removal of endometriosis and ovarian cysts Past Anesthesia/Blood Transfusion Reactions: Family Hisory of Malignant Hyperthermia Additional Past Anesthesia/Blood Transfusion Reaction / Comm: Pts son has malignant hyperthermia-pt. was tested & she does not have or no one on her side of family that she knows of-came from father's side per testing Past Psychological History: Anxiety, Depression, Panic Disorder Additional Psychological History / Comment(s): Pt is disabled. She resides with her 6 yr old son. She drives Smoking Status: Current every day smoker Past Alcohol Use History: None Reported Additional Past Alcohol Use History / Comment(s): smokes 2-3 cigarettes daily for past 10 yrs Past Drug Use History: Marijuana Additional Drug Use History / Comment(s): Pt uses marijuana oil pen - Past Family History Father Family Medical History: Cancer Additional Family Medical History / Comment(s): Father has basal cell skin cancer and sarcoidosis. Mother Additional Family Medical History / Comment(s): Mother has sinus tachycardia, bipolar, borderline personality disorder and anxiety. Medications and Allergies Home Medications Medication Instructions Recorded Confirmed Type Levothyroxine Sodium [Synthroid] 50 mcg PO DAILY 10/20/15 04/12/19 History clonazePAM [KlonoPIN] 0.5 mg PO TID 10/20/15 04/12/19 History ARIPiprazole [Abilify] 2 mg PO HS 07/09/18 04/12/19 History Cholecalciferol [Vitamin D3 (25 1,000 unit PO PC-LUNCH 07/09/18 04/12/19 History Mcg = 1000 Iu)] Ferrous Sulfate [Iron (65 MG 325 mg PO PC-LUNCH 07/09/18 04/12/19 History Elemental)] amLODIPine [Norvasc] 2.5 mg PO DAILY 07/09/18 04/12/19 History Lansoprazole [Prevacid] 30 mg PO PC-LUNCH 04/12/19 04/12/19 History Ondansetron [Zofran] 4 mg PO Q8HR PRN 04/12/19 04/12/19 History Prochlorperazine [Compazine] 10 mg PO Q6H PRN 04/12/19 04/12/19 History Ustekinumab [Stelara] 90 mg SQ Q56D 04/12/19 04/12/19 History Allergies Allergy/AdvReac Type Severity Reaction Status Date / Time adalimumab [From Humira] Allergy Rash/Hives Verified 04/12/19 08:56 amoxicillin Allergy Rash/Hives Verified 04/12/19 08:56 codeine Allergy Rash/Hives Verified 04/12/19 08:56 doxycycline Allergy Rash/Hives Verified 04/12/19 08:56 Egg Derived Allergy Rash/Hives Verified 04/12/19 08:56 infliximab [From Remicade] Allergy Rash/Hives Verified 04/12/19 08:56 NSAIDS (Non-Steroidal Allergy Rash/Hives Verified 04/12/19 08:56 Anti-Inflamma metronidazole [From Flagyl] AdvReac Vomiting Verified 04/12/19 08:56 Physical Exam Vitals: Vital Signs Temp Pulse Pulse Resp BP BP Pulse Ox 04/12/19 07:52 97.4 F L 87 18 101/57 97 04/12/19 01:51 98.1 F 83 18 96/53 98 04/11/19 21:54 97.8 F 77 20 112/72 99 04/11/19 21:17 98.3 F 76 16 102/59 97 04/11/19 18:28 97.7 F 121 H 20 146/110 100 Intake and Output 04/12/19 04/12/19 04/12/19 06:59 14:59 22:59 Intake Total 900 Balance 900 Intake: Oral 900 Other: # Voids 1 2 # Bowel Movements 2 Weight 48.081 kg On physical examination, patient appears comfortable in no apparent distress. HEAD: Normocephalic, atraumatic. EYES: No scleral icterus. No conjunctival injection. MOUTH: No lesions, tongue midline. NECK: Trachea midline, no gross abnormalities. CHEST: Clear to auscultation with no wheezing or rhonchi appreciated. HEART: Regular rate and rhythm. ABDOMEN: Soft, thin and nontender. Bowel sounds are positive. No organomegaly. No guarding or rigidity. EXTREMITIES: No pedal edema. SKIN: No rashes, no jaundice. NEUROLOGIC: Alert and oriented x3. No focal deficits. Results CBC & Chem 7: 04/13/19 07:20 04/13/19 07:20 Labs: Abnormal Lab Results - Last 24 Hours (Table) 04/11/19 04/11/19 Range/Units 19:16 19:40 Sodium 136 L (137-145) mmol/L Urine Protein Trace H (Negative) Microbiology - Last 24 Hours (Table) 04/11/19 19:40 Stool Culture - Preliminary Stool Assessment and Plan (1) Crohns disease Narrative/Plan: 29-year-old female with a medical history significant for Crohn's disease which she reports as being treated with biologic therapy and immunologic therapy in the past and for which she is currently receiving Stelara which was initiated in 11/2018 and for which she denies complicated disease and believes her Crohn's is restricted to the small bowel who presented to the hospital with complaints of abdominal pain described as cramping in nature with associated increased frequency of bowel movements and blood per rectum. Patient reports her steroid therapy for her disease the last in January 2019. She also has a stated history of irritable bowel syndrome. Testing for Clostridium difficile negative on current presentation. Hemoglobin was normal. Plan is to order inflammatory markers and continue patient on IV steroid therapy. Current Visit: Yes Status: Acute Code(s): K50.90 - CROHN'S DISEASE, UNSPECIFIED, WITHOUT COMPLICATIONS SNOMED Code(s): 96323502 (2) Abdominal pain Current Visit: No Status: Acute Code(s): R10.9 - UNSPECIFIED ABDOMINAL PAIN SNOMED Code(s): 18967460 (3) Diarrhea Current Visit: No Status: Acute Code(s): R19.7 - DIARRHEA, UNSPECIFIED SNOMED Code(s): 35095453 Plan: Supportive care Okay for low fiber, low residual diet ESR and CRP ordered Clostridium difficile testing ordered and negative Continue IV steroid therapy Patient should be continued on biologic therapy after discharge Follow-up with gastroenterology after discharge Patient has endoscopic procedures with both EGD and colonoscopy planned for within the next few months Thank you for allowing us to be just been in the care of this patient we will continue to follow
[2019-04-13 11:46] LABS: Glucose,Whole Blood 143 mg/dL (75-99)
[2019-04-13] MEDS: CHOLECALCIFEROL 1,000 UNIT TAB PO SCH (13:27)
[2019-04-13] MEDS: FERROUS SULFATE 325 MG TAB PO SCH (13:27)
[2019-04-13] MEDS: DICYCLOMINE 10 MG CAP PO PRN (15:42)
[2019-04-13] MEDS: methylPREDNISolone SOD SUCCI 40 MG/ML 1 ML VIAL IV SCH ×2 (15:42→23:45)
--- NOTE | 2019-04-13 15:58 | P.PN ---
Subjective Progress Note Date: 04/13/19 This is a 29-year-old female admitted with acute Crohn's exacerbation, dehydration and multiple other medical issues. Nausea with no emesis. Diarrhea improved, reports 1 episode today. Reports right lower quadrant abdominal pain. Evaluated by GI, maintained on IV steroids, which have been decreased today with Bentyl initiated. Patient on her menses currently. Ambulating, tolerating exertion well. Objective - Vital Signs Vital signs: Vital Signs Temp 98.1 F 04/13/19 07:35 Pulse 98 04/13/19 07:35 Resp 10 L 04/13/19 07:35 BP 113/76 04/13/19 07:35 Pulse Ox 98 04/13/19 07:35 Intake & Output 04/12/19 04/13/19 04/13/19 18:59 06:59 18:59 Intake Total 900 Balance 900 Weight 48.081 kg Intake: Oral 900 Other: # Voids 2 3 # Bowel Movements 2 - Exam PHYSICAL EXAM: VITAL SIGNS: As above GENERAL: Sitting up in bed, no acute distress HEENT: Conjunctivae normal. eyes normal. NECK: No JVD. No thyroid enlargement. No LNs CARDIOVASCULAR: S1, S2 regular.No murmur. RESPIRATION: Breath sounds diminished in the bases. No rhonchi or crackles. ABDOMEN: Soft, tender right lower quadrant . No guarding. no masses palpable. Bowel sounds heard. LEGS: No edema. no swelling PSYCHIATRY: Alert and oriented X3, mood and affect normal. NERVOUS SYSTEM: Cranial N 2-12 grossly normal. Moves all 4 limbs. No focal deficits. Strength and sensation grossly intact. Skin: no rash - Labs CBC & Chem 7: 04/13/19 07:20 04/13/19 07:20 Labs: Abnormal Lab Results - Last 24 Hours (Table) 04/12/19 04/12/19 04/13/19 Range/Units 17:30 20:46 06:55 Neutrophils # (1.3-7.7) k/uL Lymphocytes # (1.0-4.8) k/uL Chloride (98-107) mmol/L Carbon Dioxide (22-30) mmol/L Glucose (74-99) mg/dL POC Glucose (mg/dL) 173 H 159 H 135 H (75-99) mg/dL Total Protein (6.3-8.2) g/dL Albumin (3.5-5.0) g/dL 04/13/19 04/13/19 Range/Units 07:20 07:20 Neutrophils # 8.8 H (1.3-7.7) k/uL Lymphocytes # 0.6 L (1.0-4.8) k/uL Chloride 111 H (98-107) mmol/L Carbon Dioxide 21 L (22-30) mmol/L Glucose 124 H (74-99) mg/dL POC Glucose (mg/dL) (75-99) mg/dL Total Protein 6.0 L (6.3-8.2) g/dL Albumin 3.4 L (3.5-5.0) g/dL Assessment and Plan Assessment: Right lower quadrant abdominal pain secondary to acute Crohn's exacerbation Nicotine dependence Chronic intermittent asthma, stable Gastroesophageal reflux disease Hypertension Plan: Continue on current medication regime ,monitoring and symptomatic treatment. Steroid tapering in progress as per GI. Maintain low fiber diet. Smoking cessation reinforced, patient eager to continue on nicotine patche at discharge. Discharge planning in progress for tomorrow pending GI clearance. The impression and plan of care has been dictated as directed. : I performed a history and examination of this patient, discussed the same with the dictator. I agree with the dictator's note ,documented as a scribe. Any additional findings or plans will be noted.
[2019-04-13 17:32] LABS: Glucose,Whole Blood 119 mg/dL (75-99)
[2019-04-13] MEDS: ONDANSETRON 4 MG TAB PO PRN (17:53)
--- NOTE | 2019-04-13 19:30 | P.PN ---
Subjective Progress Note Date: 04/13/19 Principal diagnosis: Crohn's disease, abdominal pain, blood per rectum Patient seen lying in bed reporting one loose stool this morning. Abdominal pain overall improved but still present. No vomiting but still having some nausea. Objective - Vital Signs Vital signs: Vital Signs Temp 97.8 F 04/13/19 12:52 Pulse 75 04/13/19 12:52 Resp 12 04/13/19 12:52 BP 112/74 04/13/19 12:52 Pulse Ox 98 04/13/19 12:52 Intake & Output 04/12/19 04/13/19 04/13/19 18:59 06:59 18:59 Intake Total 900 240 Balance 900 240 Weight 48.081 kg Intake: Oral 900 240 Other: # Voids 2 3 # Bowel Movements 2 - Exam On physical examination, patient appears comfortable in no apparent distress. HEAD: Normocephalic, atraumatic. EYES: No scleral icterus. No conjunctival injection. MOUTH: No lesions, tongue midline. NECK: Trachea midline, no gross abnormalities. CHEST: No respiratory distress. ABDOMEN: Soft, obese. Bowel sounds are positive. No organomegaly. No guarding or rigidity. EXTREMITIES: No pedal edema. SKIN: No rashes, no jaundice. NEUROLOGIC: Alert and oriented x3. No focal deficits. - Labs CBC & Chem 7: 04/13/19 07:20 04/13/19 07:20 Labs: Abnormal Lab Results - Last 24 Hours (Table) 04/12/19 04/12/19 04/13/19 Range/Units 17:30 20:46 06:55 Neutrophils # (1.3-7.7) k/uL Lymphocytes # (1.0-4.8) k/uL Chloride (98-107) mmol/L Carbon Dioxide (22-30) mmol/L Glucose (74-99) mg/dL POC Glucose (mg/dL) 173 H 159 H 135 H (75-99) mg/dL Total Protein (6.3-8.2) g/dL Albumin (3.5-5.0) g/dL 04/13/19 04/13/19 04/13/19 Range/Units 07:20 07:20 11:44 Neutrophils # 8.8 H (1.3-7.7) k/uL Lymphocytes # 0.6 L (1.0-4.8) k/uL Chloride 111 H (98-107) mmol/L Carbon Dioxide 21 L (22-30) mmol/L Glucose 124 H (74-99) mg/dL POC Glucose (mg/dL) 143 H (75-99) mg/dL Total Protein 6.0 L (6.3-8.2) g/dL Albumin 3.4 L (3.5-5.0) g/dL Assessment and Plan (1) Crohns disease Narrative/Plan: 29-year-old female with a medical history significant for Crohn's disease which she reports as being treated with biologic therapy and immunologic therapy in the past and for which she is currently receiving Stelara which was initiated in 11/2018 and for which she denies complicated disease and believes her Crohn's is restricted to the small bowel who presented to the hospital with complaints of abdominal pain described as cramping in nature with associated increased frequency of bowel movements and blood per rectum. Patient reports her steroid therapy for her disease the last in January 2019. She also has a stated history of irritable bowel syndrome. Testing for Clostridium difficile negative on current presentation. Hemoglobin was normal. No elevation in ESR or CRP. Steroid dose cut down today. Current Visit: Yes Status: Acute Code(s): K50.90 - CROHN'S DISEASE, UNSPECIFIED, WITHOUT COMPLICATIONS SNOMED Code(s): 95321159 (2) Abdominal pain Current Visit: No Status: Acute Code(s): R10.9 - UNSPECIFIED ABDOMINAL PAIN SNOMED Code(s): 60549277 (3) Diarrhea Current Visit: No Status: Acute Code(s): R19.7 - DIARRHEA, UNSPECIFIED SNOMED Code(s): 64690263 Plan: Supportive care Okay for low fiber, low residual diet ESR and CRP within normal limits Clostridium difficile testing ordered and negative Continue IV steroid therapy, decreased Solu-Medrol dose from 60-20 every 8 Bentyl evaluated for abdominal pain Patient should be continued on biologic therapy after discharge Follow-up with gastroenterology after discharge Patient has endoscopic procedures with both EGD and colonoscopy planned for within the next few months Thank you for allowing us to be just been in the care of this patient we will continue to follow
[2019-04-13 20:26] LABS: Glucose,Whole Blood 125 mg/dL (75-99)
[2019-04-13] MEDS: ARIPiprazole 2 MG TAB PO SCH (21:54)
[2019-04-14] MEDS: HYDROmorphone 0.5 MG/0.5 ML SYRINGE IVP PRN ×2 (02:18→06:15)
[2019-04-14] MEDS: LEVOTHYROXINE 50 MCG TAB PO SCH (06:15)
[2019-04-14] MEDS: PROCHLORPERAZINE 10 MG TAB PO PRN (06:15)
[2019-04-14 07:12] LABS: Glucose,Whole Blood 139 mg/dL (75-99)
[2019-04-14] MEDS: INSULIN ASPART (NovoLOG) 100 UNIT/ML VIAL SQ SCH ×2 (08:14→12:19)
[2019-04-14] MEDS: methylPREDNISolone SOD SUCCI 40 MG/ML 1 ML VIAL IV SCH (08:29)
[2019-04-14] MEDS: ONDANSETRON 4 MG/2 ML VIAL IVP SCH (08:29)
[2019-04-14] MEDS: NICOTINE 7MG/24HR PATCH TRANSDERM SCH (08:29)
[2019-04-14] MEDS: PANTOPRAZOLE 40 MG/10 ML VIAL IVP SCH (08:30)
[2019-04-14] MEDS: clonazePAM 0.5 MG TAB PO SCH (08:30)
[2019-04-14] MEDS: SODIUM CHLORIDE 0.9% 1,000 ML IV SCH (08:36)
[2019-04-14] MEDS ORDERED: HYDROcodone/APAP 5-325MG 1 EACH TAB PO PRN (09:27)
[2019-04-14] MEDS ORDERED: HYDROmorphone 0.5 MG/0.5 ML SYRINGE IVP STA (10:32)
[2019-04-14] MEDS: DICYCLOMINE 10 MG CAP PO PRN (10:38)
[2019-04-14 11:19] LABS: Glucose,Whole Blood 141 mg/dL (75-99)
[2019-04-14 12:47] VITALS: BP 119/77; PULSE 52; RESP 16; TEMP 98.7
[2019-04-14] MEDS: CHOLECALCIFEROL 1,000 UNIT TAB PO SCH (13:15)
[2019-04-14] MEDS: FERROUS SULFATE 325 MG TAB PO SCH (13:15)
--- NOTE | 2019-04-14 14:23 | P.DS ---
Providers Date of admission: 04/11/19 20:32 Expected date of discharge: 04/14/19 Attending physician: Satish Tompkins Consults: 04/11/19 20:32 Consult Physician Routine Consulting Provider: Miguel Benoit Consult Reason/Comments: Crohn's Do you want consulting provider notified?: Yes Primary care physician: Satish Tompkins [facility] Course: Final Diagnoses: acute Crohn's exacerbation Nicotine dependence Chronic intermittent asthma, stable Gastroesophageal reflux disease Hypertension Hospital course:This is a 29-year-old female admitted with acute Crohn's exacerbation, dehydration and multiple other medical issues. Nausea with no emesis. Diarrhea improved, reports 1 episode today. Reports right lower quadrant abdominal pain. Evaluated by GI, maintained on IV steroids, which have been decreased today with Bentyl initiated. Patient on her menses currently. Ambulating, tolerating exertion well. Significant clinical improvement. Cleared by GI for discharge. Patient is being discharged home in stable condition with guarded prognosis. EXAM: GENERAL: Alert and oriented 3, no acute distress CARDIOVASCULAR: S1, S2 regular.No murmur. RESPIRATION: Breath sounds diminished in the bases. ABDOMEN: Soft, minimal tenderness right lower quadrant . No guarding. no masses palpable. Bowel sounds heard. NERVOUS SYSTEM: No focal deficits. The impression and plan of care has been dictated as directed. : I performed a history and examination of this patient, discussed the same with the dictator. I agree with the dictator's note ,documented as a scribe. Any additional findings or plans will be noted. Patient Condition at Discharge: Stable Plan - Discharge Summary Discharge Rx Participant: Yes New Discharge Prescriptions: New Dicyclomine [Bentyl] 10 mg PO QID PRN #30 cap PRN Reason: Dyspepsia predniSONE 5 mg PO DAILY 30 Days #140 tab Nicotine 7Mg/24Hr Patch [Habitrol] 1 patch TRANSDERM DAILY #30 patch Continue Levothyroxine Sodium [Synthroid] 50 mcg PO DAILY clonazePAM [KlonoPIN] 0.5 mg PO TID Cholecalciferol [Vitamin D3 (25 Mcg = 1000 Iu)] 1,000 unit PO PC-LUNCH Ferrous Sulfate [Iron (65 MG Elemental)] 325 mg PO PC-LUNCH amLODIPine [Norvasc] 2.5 mg PO DAILY ARIPiprazole [Abilify] 2 mg PO HS Prochlorperazine [Compazine] 10 mg PO Q6H PRN PRN Reason: Nausea Ondansetron [Zofran] 4 mg PO Q8HR PRN PRN Reason: Nausea Lansoprazole [Prevacid] 30 mg PO PC-LUNCH Ustekinumab [Stelara] 90 mg SQ Q56D Discharge Medication List Levothyroxine Sodium [Synthroid] 50 mcg PO DAILY 10/20/15 [History] clonazePAM [KlonoPIN] 0.5 mg PO TID 10/20/15 [History] ARIPiprazole [Abilify] 2 mg PO HS 07/09/18 [History] Cholecalciferol [Vitamin D3 (25 Mcg = 1000 Iu)] 1,000 unit PO PC-LUNCH 07/09/18 [History] Ferrous Sulfate [Iron (65 MG Elemental)] 325 mg PO PC-LUNCH 07/09/18 [History] amLODIPine [Norvasc] 2.5 mg PO DAILY 07/09/18 [History] Lansoprazole [Prevacid] 30 mg PO PC-LUNCH 04/12/19 [History] Ondansetron [Zofran] 4 mg PO Q8HR PRN 04/12/19 [History] Prochlorperazine [Compazine] 10 mg PO Q6H PRN 04/12/19 [History] Ustekinumab [Stelara] 90 mg SQ Q56D 04/12/19 [History] Dicyclomine [Bentyl] 10 mg PO QID PRN #30 cap 04/14/19 [Rx] Nicotine 7Mg/24Hr Patch [Habitrol] 1 patch TRANSDERM DAILY #30 patch 04/14/19 [Rx] predniSONE 5 mg PO DAILY 30 Days #140 tab 04/14/19 [Rx] Follow up Appointment(s)/Referral(s): Satish Tompkins MD [Primary Care Provider] - 3 Days () Miguel Benoit MD [STAFF PHYSICIAN] - 3 Weeks (2-4 weeks hospital f/u and establish to office) Activity/Diet/Wound Care/Special Instructions: Diet: Low fiber
[2019-04-14] MEDS ORDERED: PANTOPRAZOLE 40 MG TABLET PO SCH (17:30)
--- NOTE | 2019-04-16 12:42 | CDI ---
Documentation Clarification Form Date: 04/16/19 From: Misti Brown CCS Phone: If you have a question about this query, please contact Maggie Gotti, Registered Associate at [phone] between 8am and 5pm. Admit Date: 04/11/19 Discharge Date: 04/14/19 Patient Name: Tasha Urias Visit Number: [id number] ATTENTION: The Clinical Documentation Specialists (CDI) and [facility] Coding Staff appreciate your assistance in clarifying documentation. Please respond to the clarification below the line at the bottom and electronically sign. The CDI & [facility] Coding staff will review the response and follow-up if needed. Please note: Queries are made part of the Legal Health Record. If you have any questions, please contact the author of this message via ITS. Dear Dr. Tompkins Patient has been described as thin, cachetic. History/Risk Factors: Crohn's, Dehydration, GERD, Hypothyroid, HTN, Anxiety Clinical Indicators: Underweight Patients weight is: 48.081 kg Patients height is: 5 ft 5 in Calculated BMI is: 17.6 Albumin: 4.1, 3.4 Total Protein: 6.7, 6.0 Treatments: Ensure Enlive BIS = 350 kcal and 20 gms protein/ serving Dietary Consult: On 04/12/19 In order to capture the severity of condition associated with patient BMI of 17.6, a clinical diagnosis needs to be documented by the physician. Please clarify: Cachexia Underweight Malnutrition Mild Moderate Severe Other Unable to determine MTDD
--- NOTE | 2019-04-17 10:01 | DS ---
DISCHARGE SUMMARY ADDENDUM: Please add to the discharge summary: Mild protein calorie malnutrition. MMODL / IJN: [id number] /
== END 2019-04-14 17:34 | disposition home or self-care (01) | DRG 386 ==
LOC: EC 18:20 → 4SSUR 20:32 → 5NMEDONC 04-12 14:01
PROVIDERS: ADMIT Family Medicine; ATTEND Family Medicine
DX: K50.011 Crohn's disease of small intestine with rectal bleeding (principal); Z68.1 Body mass index [BMI] 19.9 or less, adult; E44.1 Mild protein-calorie malnutrition; R64 Cachexia; E86.0 Dehydration; K21.9 Gastro-esophageal reflux disease without esophagitis; J45.20 Mild intermittent asthma, uncomplicated; I10 Essential (primary) hypertension; E03.9 Hypothyroidism, unspecified; M06.4 Inflammatory polyarthropathy; G43.909 Migraine, unspecified, not intractable, without status migrainosus; F41.9 Anxiety disorder, unspecified; F32.9 Major depressive disorder, single episode, unspecified; F17.210 Nicotine dependence, cigarettes, uncomplicated; R00.0 Tachycardia, unspecified; F41.0 Panic disorder [episodic paroxysmal anxiety]; R01.1 Cardiac murmur, unspecified; Z71.3 Dietary counseling and surveillance; Z71.6 Tobacco abuse counseling; Z79.890 Hormone replacement therapy; Z79.899 Other long term (current) drug therapy; Z86.19 Personal history of other infectious and parasitic diseases; Z87.42 Personal history of other diseases of the female genital tract; Z98.890 Other specified postprocedural states; Z87.19 Personal history of other diseases of the digestive system; Z88.6 Allergy status to analgesic agent; Z88.0 Allergy status to penicillin; Z88.1 Allergy status to other antibiotic agents; Z88.5 Allergy status to narcotic agent; Z88.8 Allergy status to other drugs, medicaments and biological substances; Z82.69 Family history of other diseases of the musculoskeletal system and connective tissue; Z80.8 Family history of malignant neoplasm of other organs or systems; Z84.89 Family history of other specified conditions; Z81.8 Family history of other mental and behavioral disorders; Z82.49 Family history of ischemic heart disease and other diseases of the circulatory system
CPT/HCPCS: 36415; 80053; 81003; 81025; 83605; 83690; 83735; 85025; 85610; 85652; 85730; 86140; 86850; 86900; 86901; 87045; 87046; 87324; 96361; 96374; 96375; 99285

== ENCOUNTER 2019-04-21 | Inpatient (IN) | payer MEDICARE, OTHER | END 2019-04-22 16:17 | disposition home or self-care (01) | DRG 387 | PROVIDERS: ADMIT Family Medicine | CPT/HCPCS: 74177; 80048; 80053; 84443; 85025; 85652; 86140; 87045; 87046; 87324 ==

== ENCOUNTER → 2019-11-17 | Outpatient (CLI) | payer MEDICARE, OTHER ==
--- NOTE | 2019-11-17 09:30 | USB ---
Reason for exam: clinical finding. History: Family history of breast cancer in maternal grandmother at age 60 and breast cancer in paternal aunt at age 60. Physical Findings: Nurse Summary: Patient complains of right axilla lump x 6 weeks, bilateral dense, firm nodularity, 2cm lump right axilla (nurse mj). US Breast RT Technologist: Khushbu Collins Right complete breast ultrasound includes all four quadrants, the retroareolar region and axilla. Finding demonstrates a 1.3 x 1.4 x 0.7cm oval, cystic lesion at 12 o'clock internal echoes, 6 month follow up recommended, a 0.5 x 0.5 x 0.3cm cystic lesion at 11 o'clock and a 0.5 x 0.5 x 0.3cm cystic lesion at 11 o'clock. These results were verbally communicated with the patient and result sheet given to the patient on 11/17/19. ASSESSMENT: Probably benign, BI-RAD 3 RECOMMENDATION: Ultrasound of the right breast in 6 months. Manage patient on a clinical basis.
== END | disposition home or self-care (01) ==
LOC: RADUSWWP 07:32
PROVIDERS: ATTEND Obstetrics & Gynecology
DX: N63.31 Unspecified lump in axillary tail of the right breast (principal)

== ENCOUNTER → 2019-12-20 | Outpatient (CLI) | payer MEDICARE, OTHER ==
--- NOTE | 2019-12-21 08:10 | MM ---
Reason for exam: clinical finding. History: Family history of breast cancer in maternal grandmother at age 60 and breast cancer in paternal aunt at age 60. Taking hormonal contraceptives for 20 years. Physical Findings: Nurse Summary: 1 x 1.5cm nodule in the right breast at 12 o'clock (nurse ts). MG 3D Diag Mammo W/Cad JARRET Bilateral CC, MLO, and XCCL view(s) were taken. Prior study comparison: November 17, 2019, right breast US breast RT. The breast tissue is extremely dense which could obscure a lesion on mammography. Scattered benign calcifications. There is no discrete abnormality including area of concern. These results were verbally communicated with the patient and result sheet given to the patient on 12/20/19. ASSESSMENT: Probably benign, BI-RAD 3 RECOMMENDATION: Ultrasound of the right breast in 6 months. Manage patient on a clinical basis.
== END | disposition home or self-care (01) ==
LOC: RADMAMWWP 14:17
PROVIDERS: ATTEND Family Medicine
DX: N63.10 Unspecified lump in the right breast, unspecified quadrant (principal); N63.20 Unspecified lump in the left breast, unspecified quadrant
CPT/HCPCS: 77066; G0279; 77062

== ENCOUNTER → 2020-06-19 | Outpatient (CLI) | payer MEDICARE, OTHER ==
--- NOTE | 2020-06-19 13:41 | USB ---
Reason for exam: follow-up at short interval from prior study. History: Family history of breast cancer in maternal grandmother at age 60, breast cancer in paternal aunt at age 60, and breast cancer in maternal cousin. Taking hormonal contraceptives for 20 years. Physical Findings: Nurse Summary: Patient complains of intermittent brown discharge right nipple since October 2020 (nurse db). US Breast Limited RT Right limited breast ultrasound including focal area of concern, retroareolar and axilla demonstrates a 1.3 x 1.5 x 0.6cm solid lesion at 12 o'clock. These results were verbally communicated with the patient and result sheet given to the patient on 06/19/20. ASSESSMENT: Suspicious, BI-RAD 4 RECOMMENDATION: Ultrasound core biopsy of the right breast. Called Dr. Dixon's office with mammographic findings. Office will call patient to set up surgical consult. Biopsy scheduled for 07/19/20 at 8:00. PRELIMINARY REPORT CALLED AND FAXED TO DR. DIXON ON 06/19/20.
== END | disposition home or self-care (01) ==
LOC: RADUSWWP 06:59
PROVIDERS: ATTEND Obstetrics & Gynecology
DX: R92.2 Inconclusive mammogram (principal); Z80.3 Family history of malignant neoplasm of breast

== ENCOUNTER → 2020-07-19 | Day surgery (SDC) | payer MEDICARE, OTHER ==
[2020-07-19 07:23] VITALS: RESP 16
[2020-07-19 08:35] VITALS: BP 153/65; PULSE 96; TEMP 98.3
--- NOTE | 2020-07-19 09:25 | USB ---
EXAMINATION TYPE: US biopsy breast VAD RT DATE OF EXAM: 07/19/2020 CLINICAL HISTORY: N63 BREAST LUMP/MASS. Abnormal ultrasound. History of Crohn's disease. TECHNIQUE: Ultrasound guided core biopsy of right breast with clip placement. COMPARISON: Prior ultrasound June 19, 2020 and older NOVEMBER 17, 2019 FINDINGS: The procedure of ultrasound guided core biopsy was explained to the patient. Benefits, alt ernatives, and risks were discussed. An informed consent was then obtained. The patient was placed in supine positioning for imaging and for the procedure. Preprocedure ultraso und redemonstrates a 12:00 position zone BC a roughly 1.2 x 0.6 cm oval hypoechoic well-defined mass. The overlying skin was prepped and draped in usual sterile fashion. Lidocaine is used as anesthetic into the skin. Lidocaine with epinephrine is used as anesthetic into the deeper tissue up to area of concern in the right breast. A denton was made with surgical scalpel. Under ultrasound guidance, a vacuum assisted biopsy gun device was used to obtain 3 core samples. Fo llowing this, a biopsy clip was left in lesion. The patient tolerated the procedure well without any immediate complication. The patient was kept in the radiology department for short stay after the procedure and then discharged home in stable condi tion. Post procedure mammogram not performed due to patient's age and good visualization of mass and centra l clip on ultrasound after procedure completed . IMPRESSION: Successful, uncomplicated ultrasound guided core biopsy of area of concern in the right b reast, full pathology results to follow. Low index of suspicion at time of procedure. Favor fibroadenoma.
== END ==
LOC: RADUSWWP 07:10
PROVIDERS: ATTEND Obstetrics & Gynecology
DX: D24.1 Benign neoplasm of right breast (principal); R92.0 Mammographic microcalcification found on diagnostic imaging of breast; N60.21 Fibroadenosis of right breast; N63.10 Unspecified lump in the right breast, unspecified quadrant; Z88.6 Allergy status to analgesic agent; Z88.1 Allergy status to other antibiotic agents; Z88.5 Allergy status to narcotic agent; Z88.0 Allergy status to penicillin; Z88.8 Allergy status to other drugs, medicaments and biological substances; Z91.012 Allergy to eggs
CPT/HCPCS: 88305; 19083; A4648; J2001

== ENCOUNTER → 2020-12-05 | Outpatient (CLI) | payer MEDICARE, OTHER ==
--- NOTE | 2020-12-05 08:33 | MM ---
Reason for exam: clinical finding. Last mammogram was performed 1 year ago. History: Family history of breast cancer in maternal grandmother at age 60, breast cancer in paternal aunt at age 60, and breast cancer in maternal cousin. Benign US biopsy breast VAD RT of the right breast, July 19, 2020. Taking hormonal contraceptives for 20 years. Physical Findings: Nurse did not find any significant physical abnormalities on exam. MG 3D Diag Mammo W/Cad JARRET Bilateral CC, MLO, and XCCL view(s) were taken. Prior study comparison: December 20, 2019, bilateral MG 3d diag mammo w/cad JARRET. The breast tissue is extremely dense which could obscure a lesion on mammography. There are benign appearing round calcifications bilaterally. Previous mammotome biopsy in the right breast. There is no discrete abnormality. These results were verbally communicated with the patient and result sheet given to the patient on 12/05/20. ASSESSMENT: Benign, BI-RAD 2 RECOMMENDATION: Routine screening mammogram of both breasts at age 39.
== END | disposition home or self-care (01) ==
LOC: RADMAMWWP 06:58
PROVIDERS: ATTEND Obstetrics & Gynecology
DX: D24.9 Benign neoplasm of unspecified breast (principal); R92.8 Other abnormal and inconclusive findings on diagnostic imaging of breast
CPT/HCPCS: 77066; G0279; 77062

== ENCOUNTER → 2020-12-08 | Outpatient (CLI) | payer MEDICARE, OTHER ==
--- NOTE | 2020-12-08 08:16 | US ---
EXAMINATION TYPE: US gallbladder DATE OF EXAM: 12/08/2020 COMPARISON: NONE CLINICAL HISTORY: R74.0 ELEVATED LIVER ENZYMES. EXAM MEASUREMENTS: Liver Length: 13.0 cm Gallbladder Wall: 0.2 cm CBD: 0.3 cm Right Kidney: 9.7 x 4.7 x 3.8 cm Pancreas: wnl Liver: wnl Gallbladder: wnl Evidence for sonographic Silvestre's sign: No CBD: wnl Right Kidney: wnl IMPRESSION: 1. Normal right upper quadrant ultrasound
== END | disposition home or self-care (01) ==
LOC: RADUSWWP 06:56
PROVIDERS: ATTEND Family Medicine
DX: R74.01 Elevation of levels of liver transaminase levels (principal)
CPT/HCPCS: 76705

== ENCOUNTER → 2020-12-25 | Outpatient (CLI) | payer MEDICARE, OTHER ==
--- NOTE | 2020-12-25 09:24 | NM ---
Nuclear medicine hepatobiliary scan. HISTORY: Pain. DOSAGE: The patient received 8 ounces of ensure plus and 5.2 mCi of Technetium 99m Choletec. FINDINGS: There is normal hepatic extraction is a small area of reduced uptake involving the left lob e of the liver superiorly could be correlated with ultrasound. The gallbladder is seen by 30 minutes . There is biliary to bowel clearance by 20 minutes. Ejection fraction is 43%. IMPRESSION: 1. Normal hepatobiliary exam and there is a small filling defect involving the dome of the left lobe liver which could be artifactual. Recent ultrasound reported no abnormality within the liver.
== END | disposition home or self-care (01) ==
LOC: RADNMMAIN 06:46
PROVIDERS: ATTEND Family Medicine
DX: E80.7 Disorder of bilirubin metabolism, unspecified (principal)
CPT/HCPCS: 78226; A9537

== ENCOUNTER → 2021-11-12 | Outpatient (CLI) | payer MEDICARE, OTHER ==
--- NOTE | 2021-11-12 12:46 | US ---
EXAMINATION TYPE: Transabdominal DATE OF EXAM: 11/12/2021 12:35 PM COMPARISON: NONE CLINICAL HISTORY: O00.91 UNSPECIFIED ECTOPIC . EXAM PERFORMED: Transvaginal (TV) and Transabdominal (TA) EXAM MEASUREMENTS: GESTATIONAL AGE / DATING Physician Established: Not yet established Dates by LMP: 10/10/2021 (4 weeks/5 days) EDC: 07/17/2022 Dates by First Scan: No previous this is first scan Dates by Current Scan for: Unable to date by today's study MATERNAL ANATOMY Uterus: 9.9 x 5.2 x 5.8 cm Right Ovary: 5.3 x 3.9 x 5.7 cm Left Ovary: 2.8 x 1.8 x 1.9 cm Post CDS / Adnexa: small amount of free fluid adjacent to right ovary. Presence of corpus luteal cyst: Right ovary contains a 6.0 x 3.6 x 5.4 cm cyst with internal echoes, and the left ovary contains a thick rimmed cyst measuring 1.9 x 1.5 x 1.7 cm. GESTATION / SURVEY Endo measures 1.3 cm, no evidence of decidual reaction or gestational sac. Date of LMP: 10/10/2021 Beta HcG (if available): not available No evidence for IUP. Both ovaries contain lesions. No definite ultrasound evidence for ectopic, but c annot be ruled out at this time. IMPRESSION: 1. No evidence for intrauterine at this time. In the setting of a positive beta-hCG this m ay represent an early normal intrauterine versus ectopic versus abnormal intraute rine early . Short-term follow-up and serial beta-hCG is recommended. 2. Suspected right ovarian hemorrhagic cyst with retracted clot. Short-term follow-up in 6-12 weeks is recommended.
== END | disposition home or self-care (01) ==
LOC: RADUSWWP 11:50
PROVIDERS: ATTEND Family Medicine
DX: O00.91 Unspecified ectopic pregnancy with intrauterine pregnancy (principal); R10.2 Pelvic and perineal pain
CPT/HCPCS: 76801; 76817; 84702

== ENCOUNTER → 2024-05-11 | Outpatient (CLI) | payer MEDICARE, OTHER ==
--- NOTE | 2024-05-11 11:17 | MM ---
Reason for Exam: Clinical finding. Last mammogram was performed 3 year(s) and 6 month(s) ago. Indicated Problems: Lump or thickening of the left side for 6 Day(s). Pain of the left side (Global) for 2 Week(s). Patient History: Menarche at age 9. First Full-Term at age 22. Hysterectomy at age 33. Patient used Hormonal Contraceptives for 20 years. 07/19/2020, Benign Core Biopsy on the right side. Maternal grandmother had breast cancer, age 60. Maternal cousin had breast cancer. Paternal aunt had breast cancer, age 60. Risk Values: Sowmya 5 year model risk: 0.5%. NCI Lifetime model risk: 12.4%. Prior Study Comparison: 11/17/2019 Right Diagnostic Ultrasound, [facility]. 12/20/2019 Bilateral Diagnostic Mammogram, [facility]. 06/19/2020 Right Diagnostic Ultrasound, [facility]. 12/05/2020 Bilateral Diagnostic Mammogram, [facility]. Tissue Density: The breasts are extremely dense, which lowers the sensitivity of mammography. Findings: Analyzed By CAD. 5 mm nodular density at the site of clinical concern lower central left breast. Ultrasound recommended. Additional spot magnification views for microcalcifications. Reflect milk of calcium. There is additional asymmetric nodular density posterior to the nipple. Ultrasound of this region is also recommended. Overall Assessment: Incomplete: need additional imaging evaluation, BI-RAD 0 Management: Diagnostic Breast Ultrasound of the left breast. . Results were given to the patient verbally at the time of exam. Patient should continue monthly self-breast exams. A clinical breast exam by your physician is recommended on an annual basis. This exam should not preclude additional follow-up of suspicious palpable abnormalities. Note on Sowmya scores and lifetime risk: 1. A Sowmya score greater than 3% is considered moderate risk. If this is the case, consider specialist referral to assess eligibility for a risk reducing agent. 2. If overall lifetime risk for the development of breast cancer is 20% or higher, the patient may qualify for future screening with alternating mammogram and breast MRI. [facility], , 05/11/2024 11:14 AM. Electronically signed and approved by: Chepe Mota M.D. Radiologis
--- NOTE | 2024-05-11 11:37 | USB ---
Reason for Exam: Clinical finding. Patient History: Menarche at age 9. First Full-Term at age 22. Hysterectomy at age 33. Patient used Hormonal Contraceptives for 20 years. 07/19/2020, Benign Core Biopsy on the right side. Maternal grandmother had breast cancer, age 60. Maternal cousin had breast cancer. Paternal aunt had breast cancer, age 60. Risk Values: Sowmya 5 year model risk: 0.5%. NCI Lifetime model risk: 12.4%. Technique: Method: Targeted. Prior Study Comparison: 12/20/2019 Bilateral Diagnostic Mammogram, [facility]. 12/05/2020 Bilateral Diagnostic Mammogram, [facility]. Findings: The area of palpable concern of the left breast, the axilla of the left breast and the retroareolar of the left breast were scanned. Small cystic lesion at the site of clinical concern left breast 5:00 position 5 cm from the nipple measuring 5 x 3 mm a few internal echoes. No solid masses are detected. Six-month follow-up ultrasound advised manage clinically. Overall Assessment: Probably benign, BI-RAD 3 Management: Diagnostic Breast Ultrasound of the left breast in 6 months. A clinical breast exam by your physician is recommended on an annual basis and results should be correlated with mammographic findings. This exam should not preclude additional follow-up of suspicious palpable abnormalities. Results were given to the patient verbally at the time of exam. [facility], , 05/11/2024 11:34 AM. Electronically signed and approved by: Chepe Mota M.D. Radiologis
== END | disposition home or self-care (01) ==
LOC: RADMAMWWP 10:30
PROVIDERS: ATTEND Family Medicine
DX: N63.20 Unspecified lump in the left breast, unspecified quadrant (principal); R92.343 Mammographic extreme density, bilateral breasts; Z80.3 Family history of malignant neoplasm of breast; Z92.0 Personal history of contraception
CPT/HCPCS: 77066; 76642; G0279; 77062